=== PATIENT | female | born 1970 | race Caucasian/White ===

== ENCOUNTER 2020-06-07 22:32 | Emergency (ER) | payer OTHER ==
[~2020-06-07] VITALS: Ht 157.5 cm; Wt 56.9 kg
[2020-06-07 22:43] VITALS: Ht 157.5 cm; Wt 56.9 kg
[2020-06-08 00:24] VITALS: BP 125/95
== END 2020-06-08 00:24 | disposition home or self-care (01) ==
LOC: ED 22:32
DX: L50.9 Urticaria, unspecified (principal); I10 Essential (primary) hypertension; Z88.0 Allergy status to penicillin
CPT/HCPCS: J7512